=== PATIENT | female | born 1970 | race Caucasian/White ===

== ENCOUNTER 2021-05-18 15:39 | Emergency (ER) | payer OTHER, MEDICARE ==
[2021-05-18 17:25] LABS: BILIRUBIN NEGATIVE (NEGATIVE); BLOOD NEGATIVE Ery/uL (NEGATIVE); CLARITY CLEAR (CLEAR); COLOR YELLOW (YELLOW); GLUCOSE (U) 3+ mg/dL (NORMAL); LEUKOCYTES NEGATIVE Leu/uL (NEGATIVE); NITRITE NEGATIVE (NEGATIVE); PROTEIN NEGATIVE (NEGATIVE); UROBILINOGEN 0.2 mg/dL (0.2-1.0)
[2021-05-18 17:26] LABS: BASOPHIL 0.5 % (0-2); EOSINOPHIL 4.3 % (0-5); HCT 41.9 % (37.0-47.0); HGB 13.5 g/dl (12.5-16.0); LYMPHOCYTE 26.4 % (15-48); MCH 27.8 pg (25.0-31.0); MCHC 32.2 g/dL (32.0-36.0); MCV 86.2 fL (78.0-100.0); MONOCYTE 11.4 % (0-12); MPV 10.6 fL (6.0-9.5); NEUTROPHIL 57.1 % (41-80); NRBC 0; PLT 274 K/uL (150-400); RBC 4.86 M/uL (4.20-5.40); WBC 6.5 K/uL (4.0-10.5)
[2021-05-18 17:38] LABS: CORONAVIRUS 2019 SARS-COV-2 NEGATIVE (NEGATIVE); INFLUENZA A NAA NEGATIVE (NEGATIVE)
[2021-05-18 17:46] LABS: BUN/CREAT RATIO (CALC) 20.8 RATIO; CREATININE 0.96 mg/dL (0.51-0.95); POTASSIUM 3.5 mmol/L (3.5-5.1)
[2021-05-18 17:52] LABS: LACTIC ACID 1.8 mmol/L (0.4-1.9)
== END 2021-05-18 19:45 | disposition home or self-care (01) ==
LOC: FER 15:39
PROVIDERS: Nurse Practitioner Family
DX: I95.9 Hypotension, unspecified (principal); E11.9 Type 2 diabetes mellitus without complications; I10 Essential (primary) hypertension; E78.5 Hyperlipidemia, unspecified; K21.9 Gastro-esophageal reflux disease without esophagitis; Z88.8 Allergy status to other drugs, medicaments and biological substances; Z91.040 Latex allergy status; Z20.822 Contact with and (suspected) exposure to COVID-19; Z91.09 Other allergy status, other than to drugs and biological substances; Z79.899 Other long term (current) drug therapy
CPT/HCPCS: 36415; 80048; 81003; 83605; 84484; 85025; 87040; 93005; J7030; U0002